=== PATIENT | female | born 2000 | race Caucasian/White ===

== ENCOUNTER 2022-08-30 20:40 | Emergency (ER) | payer OTHER, SELFPAY ==
[2022-08-30 20:54] VITALS: BP 116/90; PULSE 89; RESP 18; TEMP 37.2; O2SAT 100; BMI 42.1
--- NOTE | 2022-08-30 21:05 | XR_ITS ---
[facility] [id number] Patient Name: JAI PEDRAZA MRN: [id number] date: 2000 Sex: F Assigned Patient Location: ER Current Patient Location: ER Accession/Order Number: [id number] Exam Date: 08/30/2022 22:35 Report Date: 08/30/2022 22:59 At the request of: VICENTE ENGLAND Procedure: XR chest 2V EXAM: XR chest 2V 08/30/2022 10:35 PM EDT OH001 CLINICAL STATEMENT: cough COMPARISON: No prior studies are available at the time of dictation. TECHNIQUE: PA and lateral radiograph of the chest are submitted. FINDINGS: There is no acute airspace disease. The cardiac silhouette is normal. The costophrenic recesses are sharp. No pneumothorax. The bony elements are unremarkable. IMPRESSION: No acute cardiopulmonary process. Electronically authenticated by: ELLA MCKEON Date: 08/30/2022 22:59
[2022-08-30 21:33] LABS: SARS-CoV-2 Ag Negative (NEGATIVE)
--- NOTE | 2022-08-30 21:50 | ED.URI1 ---
HPI - URI/Sore Throat General Chief Complaint: Upper Respiratory Infection Stated Complaint: URTI Time Seen by Provider: 08/30/22 21:50 Source: patient History of Present Illness HPI Narrative: the patient has history of asthma presented to us that she have some streak of blood in her cough that did not improve with initial treatment of prednisone and albuterol that was initiated a week ago by her urgent care visit The patient denies any nausea vomiting or any fever or chills but she does have chest congestion. Nasal congestion resolved The patient denies any history of smoking Review of systems otherwise negative Related Data Previous Rx's Medication Instructions Recorded azithromycin 250 mg tablet See Rx Instructions PO .COMPLEX #6 08/30/22 (Zithromax Z-Ajay) tabs guaifenesin 600 mg tablet, 600 mg PO BID PRN cough #10 tabs 08/30/22 extended release 12 hr (Mucinex) Allergies Allergy/AdvReac Type Severity Reaction Status Date / Time No Known Drug Allergies Allergy Verified 08/30/22 20:53 Review of Systems ROS Status of ROS 10 or more systems reviewed and unremarkable except as noted in history and below Exam Narrative Exam Narrative: Nurses notes and vital signs reviewed and patient is not hypoxic. General: Well-appearing and in no apparent distress. Skin: Warm, dry, no pallor noted. No rash. Head: Normocephalic, atraumatic. Neck: Supple, non-tender. Eye: Pupils are equal, round and EOMI. No scleral icterus. Ears, Nose, Mouth, and Throat: TM are clear, no nasal mucosal hypertrophy. Oral mucosa is moist, no posterior oropharynx erythema, uvula is mid-line Cardiovascular: Regular Rate and Rhythm without murmur, gallop or rub. Respiratory: No accessory muscle use or respiratory distress. Lungs are clear to auscultation, no wheezing, rales or rhonchi Chest Wall: no tenderness Back: No midline thoracic or lumbar vertebral tenderness. No CVA tenderness Musculoskeletal: normal ROM, no calf or popliteal tenderness, no lower extremity edema/swelling GI: Abdomen is soft, non-distended. Normal bowel sounds. No masses appreciated. No tenderness to palpation. No rebound, guarding, or rigidity noted. Neurological: A&O x4. No cranial nerve dysfunction observed. No truncal ataxia. Moves all extremities. Sensation intact. Psychiatric: Cooperative and interactive. Normal mood and affect. Constitutional Vital Signs - 24 hr 08/30/22 20:54 08/30/22 23:00 08/30/22 23:06 Temperature 98.9 F Pulse Rate [Monitor] 89 80 100 H Respiratory Rate 18 16 18 Blood Pressure [Left Arm] 116/90 H Pulse Oximetry 100 98 100 Oxygen Delivery Method Room Air Room Air Course Vital Signs Vital signs: Vital Signs Temperature 98.9 F 08/30/22 20:54 Pulse Rate 89 08/30/22 20:54 Respiratory Rate 18 08/30/22 20:54 Blood Pressure 116/90 H 08/30/22 20:54 Pulse Oximetry 100 08/30/22 20:54 Oxygen Delivery Method Room Air 08/30/22 20:54 Temperature 98.9 F 08/30/22 20:54 Pulse Rate 100 H 08/30/22 23:06 Respiratory Rate 18 08/30/22 23:06 Blood Pressure 116/90 H 08/30/22 20:54 Pulse Oximetry 100 08/30/22 23:06 Oxygen Delivery Method Room Air 08/30/22 23:00 MDM - URI/Sore Throat MDM Narrative Medical decision making narrative: the chest x-ray did not show any acute pathology but the patient having streak of blood in her mucus required the treatment for possible infection most a bacterial the patient will be treated with Z-Ajay for possible pneumonia The patient also instructed to use her albuterol inhaler every six hours for the next few days and also to use Mucinex The patient is to followup with primary care physician in next 2-3 days or to return to the emergency department should any of the signs or symptoms worsen or new symptoms develop. The patient agrees with the following Diagnosis and Treatment plan and the patient will be discharged home. Lab Data Labs: Lab Results 08/30/22 Range/Units 21:00 SARS-CoV-2 (PCR) Negative (NEGATIVE) Discharge Plan Discharge Chief Complaint: Upper Respiratory Infection Clinical Impression: Mild reactive airways disease, Pneumonia Patient Disposition: Home, Self-Care Time of Disposition Decision: 23:18 Mode of Transportation: Private Vehicle Prescriptions / Home Meds: New azithromycin [Zithromax Z-Ajay] 250 mg tablet See Rx Instructions .ROUTE .COMPLEX Qty: 6 0RF Rx Instructions: For 250 mg dose pack: take 500 mg today (day 1), then 250 mg for 4 days (days 2-5) guaifenesin [Mucinex] 600 mg tablet extended release 12hr 600 mg PO BID PRN (Reason: cough) Qty: 10 0RF Instructions: Acute Cough (ED) Stand Alone Forms: Portal Instructions Referrals: Physician,Non-Staff, MD [Primary Care Provider] - 1 week
[2022-08-30 23:00] VITALS: PULSE 80; RESP 16; O2SAT 98
[2022-08-30] MEDS: IPRATROPIUM/ALBUTEROL SULFATE 3 ML AMPUL.NEB IH (23:00)
[2022-08-30 23:06] VITALS: PULSE 100; RESP 18; O2SAT 100
[2022-08-30] MEDS: AZITHROMYCIN 250 MG TABLET 500 MG PO (23:43)
[2022-08-31 15:22] LABS: SARS-CoV-2 NAA NOT DETECTED (NOT DETECTE)
== END 2022-08-30 23:51 | disposition home or self-care (01) ==
PROVIDERS: Emergency Provider Emergency Medicine
DX: J18.9 Pneumonia, unspecified organism (principal); J45.909 Unspecified asthma, uncomplicated; Z20.822 Contact with and (suspected) exposure to COVID-19
CPT/HCPCS: 71046; 87635; 87811; 94640; 99284; U0003